=== PATIENT | female | born 1995 | race Caucasian/White ===

== ENCOUNTER 2019-12-02 17:05 | Emergency (ER) | payer BC ==
[~2019-12-02] VITALS: Ht 162.6 cm; Wt 108.4 kg
[2019-12-02 17:27] VITALS: Ht 162.6 cm; Wt 108.4 kg
[2019-12-02 18:46] LABS: BASOPHIL % 0.9 % (0-2); PLATELET COUNT 247 x10^3mcL (130-400); RED CELL DISTRIBUTION WIDTH 13.3 % (11.5-14.5)
[2019-12-02 18:58] LABS: CALCIUM 8.7 mg/dL (8.5-10.1); CARBON DIOXIDE 28.3 mmol/L (21-32); CHLORIDE SERUM 104 mmol/L (98-107); CREATININE SERUM 0.7 mg/dL (0.6-1.0); GFR1 > 60 mL/min; GLUCOSE SERUM 106 mg/dL (74-106); POTASSIUM SERUM 4.3 mmol/L (3.5-5.1); SODIUM SERUM 140 mmol/L (136-145)
[2019-12-02 19:03] LABS: ALBUMIN 3.8 g/dL (3.4-5.0); ALKALINE PHOSPHATASE 92 U/L (46-116); ALT/SGPT 28 U/L (14-59); AST/SGOT 21 U/L (15-37); BILIRUBIN TOTAL 0.35 mg/dL (0.20-1.00); TOTAL PROTEIN, SERUM 7.9 g/dL (6.4-8.2)
[2019-12-02 20:15] VITALS: BP 131/74
== END 2019-12-02 20:15 | disposition home or self-care (01) ==
LOC: ED 17:05
PROVIDERS: Emergency Medicine
DX: R10.813 Right lower quadrant abdominal tenderness (principal)
CPT/HCPCS: 87491; 87591; Q0092